=== PATIENT | male | born 1975 | race Caucasian/White ===

== ENCOUNTER 2022-12-11 16:59 | Emergency (ER) | payer OTHER ==
[~2022-12-11] VITALS: Ht 177.8 cm; Wt 58.0 kg
[2022-12-11 17:08] VITALS: BP 146/80
[2022-12-11] MEDS ORDERED: VISCOUS LIDOCAINE 2% 15 ML UDC PO STA (18:18)
[2022-12-11] MEDS ORDERED: MAGNESIUM/ALUMINUM HYDROXIDE/SIMETHICONE 30ML UDC PO STA (18:18)
[2022-12-11] MEDS ORDERED: FAMOTIDINE 20MG TABLET PO ONE (18:30)
[2022-12-11] MEDS ORDERED: VISCOUS LIDOCAINE 2% 15 ML UDC PO NR (20:30)
[2022-12-11] MEDS ORDERED: MAGNESIUM/ALUMINUM HYDROXIDE/SIMETHICONE 30ML UDC PO NR (20:30)
[2022-12-11] MEDS ORDERED: FAMOTIDINE 20MG TABLET PO NR (20:30)
[2022-12-12] MEDS ORDERED: SODIUM CHLORIDE 0.9% 1,000 ML IV ONE (00:30)
[2022-12-12] MEDS ORDERED: FAMO-135 MT (00:41)
[2022-12-12] MEDS ORDERED: ONDA4TAB50 MT (00:41)
[2022-12-12] MEDS ORDERED: TRAM50TA3 MT (00:41)
== END 2022-12-12 00:47 | disposition home or self-care (01) ==
LOC: ER 16:59
DX: R10.84 Generalized abdominal pain (principal)
CPT/HCPCS: 71045; 74176; 99284; J7030; Z7610